=== PATIENT | female | born 1985 | race Caucasian/White ===

== ENCOUNTER 2020-11-30 11:21 | Emergency (ER) | payer OTHER ==
[2020-12-01 12:09] LABS: SARS-CoV-2 NAA Not Detected (Not Detected)
== END 2020-11-30 12:04 | disposition home or self-care (01) ==
LOC: JVIRT 11:21
DX: Z11.52 Encounter for screening for COVID-19 (principal)
CPT/HCPCS: C9803; Q3014-GT; U0003; U0005